=== PATIENT | female | born 1945 | race Two or more races ===

== ENCOUNTER 2021-01-06 15:10 | Inpatient (IN) | payer OTHER ==
[~2021-01-06] VITALS: Ht 162.6 cm; Wt 84.4 kg
[2021-01-06] MEDS ORDERED: ASPirin 81 mg TAB PO ONE (15:30)
[2021-01-06 16:28] LABS: Basophils # (auto) 0 10 ^3/uL (0-0.2); Basophils % (auto) 0.4 % (0.0-2.0); Eosinophils # (auto) 0.1 10 ^3/uL (0-0.8); Eosinophils % (auto) 1.8 % (0.0-7.0); Hematocrit 37.4 % (36.0-46.0); Lymphocytes # (auto) 1.4 10 ^3/uL (0.4-5.4); Lymphocytes % (auto) 19.1 % (10.0-50.0); Mean Corpuscular Hemoglobin 31.5 pg (28.0-32.0); Mean Corpuscular Hgb Conc. 34.8 g/dL (32.0-36.0); Mean Corpuscular Volume 90.6 fL (80.0-100.0); Monocytes # (auto) 0.7 10 ^3/uL (0-1.3); Monocytes % (auto) 9.9 % (0.0-12.0); Neutrophils # (auto) 5.2 10 ^3/uL (1.6-8.6); Neutrophils % (auto) 68.8 % (37.0-80.0); Nucleated Red Blood Cells % 0.1 %; Platelet Count (auto) 207 10^3/uL (140-450); Red Blood Cells 4.13 10^6/uL (4.0-5.20); Red Cell Distribution Width 14.5 % (11.8-14.3); White Blood Cell 7.5 10^3/uL (4.4-10.8)
[2021-01-06 16:44] LABS: Chloride 105 mmol/L (98-107); Sodium 139 mmol/L (136-145)
[2021-01-06 16:48] LABS: Alanine Aminotransferase 45 U/L (13-56); Albumin 3.1 g/dL (3.4-5.0); Anion Gap 7 (5-15); Aspartate Aminotransferase 27 U/L (15-37); BUN/Creatinine Ratio 16.5; Blood Urea Nitrogen 14 mg/dL (7-18); Calcium 8.1 mg/dL (8.5-10.1); Carbon Dioxide 27 mmol/L (21-32); GFR African American 84 mL/min; GFR Non-African American 69 mL/min; Glucose 88 mg/dL (74-106); Magnesium 1.4 mg/dL (1.6-2.6)
[2021-01-06 16:53] LABS: Alkaline Phosphatase 73 U/L (45-117); Bilirubin, Total 0.6 mg/dL (0.2-1.0); Total Protein 6.7 g/dL (6.4-8.2)
[2021-01-06 17:26] LABS: Potassium 2.8 mmol/L (3.5-5.1)
[2021-01-06] MEDS ORDERED: ONDANSETRON HCL 4 MG/2 ML VIAL IV ONE (17:30)
[2021-01-06] MEDS ORDERED: MORPHINE SULFATE 4 MG/ML SYR/VIAL IV ONE (17:30)
[2021-01-06] MEDS ORDERED: POTASSIUM CHL 20MEQ/100ML 100 ML IV ONE (17:30)
[2021-01-06] MEDS ORDERED: LORazepam 0.5 MG TAB PO PRN (18:15)
[2021-01-06] MEDS ORDERED: NITROGLYCERIN 0.4 MG SL TAB SL PRN (18:15)
[2021-01-06] MEDS ORDERED: IPRATROPIUM BROM 0.5 MG/2.5ML INH SOL NEB PRN (18:15)
[2021-01-06] MEDS ORDERED: MORPHINE SULF INJ 2 MG/ML SYRINGE 1ML IV PRN (18:15)
[2021-01-06] MEDS ORDERED: ACETAMINOPHEN 500 MG TAB PO PRN (18:15)
[2021-01-06] MEDS ORDERED: LABETALOL HCL 5 MG/ML 4ML SYRINGE IV PRN (18:15)
[2021-01-06] MEDS ORDERED: DOCUSATE CALCIUM 240 MG CAP PO PRN (18:15)
[2021-01-06] MEDS ORDERED: NITROGLYCERIN 0.4 MG SL TAB SL ONE (18:15)
[2021-01-06] MEDS ORDERED: ALBUTEROL SULF 2.5 MG/0.5ML(0.5%) NEB SOLN NEB PRN (18:15)
[2021-01-06 18:46] VITALS: BP 111/57
[2021-01-06 18:56] LABS: Urine Bacteria NONE SEEN /hpf (None Seen); Urine Blood Negative /uL (Negative); Urine Specific Gravity 1.012 (1.001-1.035); Urine WBC 2 /hpf (0 - 5)
[2021-01-06] MEDS ORDERED: SODIUM CHLORIDE 0.9% 1,000 ML IV ONE (19:45)
[2021-01-06 19:56] LABS: INR 1.02 (0.9-1.15); Partial Thromboplastin Time 25.9 sec (23.0-31.2)
[2021-01-06 22:49] LABS: Potassium 3.2 mmol/L (3.5-5.1)
[2021-01-06] MEDS: MORPHINE SULFATE 4 MG/ML SYR/VIAL IV PRN (23:05)
[2021-01-06 23:16] VITALS: BP 120/73
[2021-01-07 05:00] VITALS: BP 144/95
[2021-01-07 05:40] LABS: Basophils # (auto) 0 10 ^3/uL (0-0.2); Basophils % (auto) 0.3 % (0.0-2.0); Eosinophils # (auto) 0.2 10 ^3/uL (0-0.8); Eosinophils % (auto) 2.6 % (0.0-7.0); Hematocrit 34.7 % (36.0-46.0); Hemoglobin 12.1 g/dL (12.2-16.2); Lymphocytes # (auto) 1.6 10 ^3/uL (0.4-5.4); Lymphocytes % (auto) 25.4 % (10.0-50.0); Mean Corpuscular Hemoglobin 31.9 pg (28.0-32.0); Mean Corpuscular Volume 91.3 fL (80.0-100.0); Monocytes # (auto) 0.6 10 ^3/uL (0-1.3); Monocytes % (auto) 8.9 % (0.0-12.0); Neutrophils # (auto) 3.9 10 ^3/uL (1.6-8.6); Neutrophils % (auto) 62.8 % (37.0-80.0); Nucleated Red Blood Cells % 0.1 %; Platelet Count (auto) 161 10^3/uL (140-450); Red Cell Distribution Width 14.3 % (11.8-14.3); White Blood Cell 6.3 10^3/uL (4.4-10.8)
[2021-01-07 05:55] LABS: Calcium 7.5 mg/dL (8.5-10.1); Chloride 110 mmol/L (98-107); Potassium 3.3 mmol/L (3.5-5.1); Sodium 142 mmol/L (136-145)
[2021-01-07 06:02] LABS: INR 1.04 (0.9-1.15)
[2021-01-07 06:04] LABS: Alanine Aminotransferase 38 U/L (13-56); Albumin 2.9 g/dL (3.4-5.0); Alkaline Phosphatase 64 U/L (45-117); Anion Gap 9 (5-15); Aspartate Aminotransferase 22 U/L (15-37); BUN/Creatinine Ratio 28.6; Bilirubin, Total 0.4 mg/dL (0.2-1.0); Blood Urea Nitrogen 22 mg/dL (7-18); Carbon Dioxide 23 mmol/L (21-32); GFR African American 94 mL/min; GFR Non-African American 77 mL/min; Glucose 89 mg/dL (74-106); Total Protein 5.9 g/dL (6.4-8.2)
[2021-01-07] MEDS: MORPHINE SULFATE 4 MG/ML SYR/VIAL IV PRN ×3 (06:42→17:46)
[2021-01-07] MEDS: ONDANSETRON HCL 4 MG/2 ML VIAL IV PRN ×2 (06:57→17:55)
[2021-01-07] MEDS ORDERED: MORP30TA PO (07:10)
[2021-01-07] MEDS ORDERED: HYDR-4798 PO (07:10)
[2021-01-07] MEDS ORDERED: APIX5TAB PO (07:10)
[2021-01-07 09:00] VITALS: BP 155/91
[2021-01-07] MEDS ORDERED: CALCIUM CARB 500 MG CHEW TAB PO SCH (10:00)
[2021-01-07] MEDS ORDERED: PANTOPRAZOLE 40 MG TAB PO SCH (10:00)
[2021-01-07] MEDS ORDERED: ENOXAPARIN SOD 40 MG/0.4 ML SYRINGE SC SCH (10:00)
[2021-01-07 13:00] VITALS: BP 138/71
[2021-01-07] MEDS ORDERED: LIDOCAINE 2%HCL (LOCAL ANESTH.) INJ 20ML MDV ONE (15:24)
[2021-01-07] MEDS ORDERED: IODIXANOL 320MG/ML 100ML BTL IV ONE (15:25)
[2021-01-07] MEDS ORDERED: HEPARIN SODIUM (PORCINE) 5000 UNITS/ML 1ML VIAL ONE (15:25)
[2021-01-07] MEDS ORDERED: ANGIOMAX 250 MG VIAL IV ONE (15:25)
[2021-01-07] MEDS ORDERED: VERAPAMIL 2.5MG/ML INJ 2ML VIAL IV ONE (15:26)
[2021-01-07] MEDS ORDERED: SODIUM CHL 0.9% 0 ML ONE (15:26)
[2021-01-07] MEDS ORDERED: fentaNYL CITRATE 100 MCG/2 ML VL ONE (15:26)
[2021-01-07] MEDS ORDERED: MIDAZOLAM HCL 1MG/1ML-2 ML VIAL ONE (15:26)
[2021-01-07] MEDS ORDERED: ONDANSETRON HCL 4 MG/2 ML VIAL ONE (15:45)
[2021-01-07] MEDS ORDERED: PANT40T PO (16:05)
[2021-01-07 17:00] VITALS: BP 126/55
[2021-01-07 18:19] VITALS: BP 138/71
== END 2021-01-07 16:14 | disposition home or self-care (01) | DRG 287 ==
LOC: ER 15:10 → TELE 18:11 → TELE-WESTW 21:38
PROVIDERS: ADMIT Family Medicine; ATTEND Internal Medicine
PROC: B211YZZ Fluoroscopy of Multiple Coronary Arteries using Other Contrast (ICD-10-PCS; principal; 2021-01-07)
PROC: 4A023N7 Measurement of Cardiac Sampling and Pressure, Left Heart, Percutaneous Approach (ICD-10-PCS; 2021-01-07)
DX: I24.9 Acute ischemic heart disease, unspecified (principal); I25.10 Atherosclerotic heart disease of native coronary artery without angina pectoris; R55 Syncope and collapse; E87.6 Hypokalemia; I48.91 Unspecified atrial fibrillation; E83.51 Hypocalcemia; E83.42 Hypomagnesemia; J45.909 Unspecified asthma, uncomplicated; Z96.653 Presence of artificial knee joint, bilateral; M54.5 Low back pain; M25.511 Pain in right shoulder; Z20.822 Contact with and (suspected) exposure to COVID-19; G89.29 Other chronic pain; E66.9 Obesity, unspecified; I10 Essential (primary) hypertension; Z88.5 Allergy status to narcotic agent; Z90.49 Acquired absence of other specified parts of digestive tract; Z90.710 Acquired absence of both cervix and uterus; Z68.31 Body mass index [BMI] 31.0-31.9, adult; Z79.01 Long term (current) use of anticoagulants
CPT/HCPCS: 36415; 70450; 71045; 80051; 80053; 81001; 83735; 83880; 84443; 84484; 85025; 85379; 85610; 85730; 86850; 86900; 86901; 87081; 87426; 93005; 96361; 96374; 96375; 99152; 99291; G0378; J2250; J2405; J3480; J3490; Q9967

== ENCOUNTER 2022-11-29 23:19 | Emergency (ER) | payer OTHER ==
[~2022-11-29] VITALS: Ht 162.6 cm; Wt 90.4 kg
[~2022-11-29 23:19] MED LIST: APIX5TAB PO; HYDR-4798 PO; MORP30TA PO; PANT40T PO
[2022-11-29 23:35] VITALS: BP 125/71
[2022-11-29 23:39] LABS: Basophils # (auto) 0 10 ^3/uL (0-0.2); Basophils % (auto) 0.4 % (0.0-2.0); Eosinophils # (auto) 0.1 10 ^3/uL (0-0.8); Eosinophils % (auto) 1.4 % (0.0-7.0); Hematocrit 35.9 % (36.0-46.0); Hemoglobin 12.3 g/dL (12.2-16.2); Lymphocytes # (auto) 1.1 10 ^3/uL (0.4-5.4); Lymphocytes % (auto) 14.5 % (10.0-50.0); Mean Corpuscular Hemoglobin 30.5 pg (28.0-32.0); Mean Corpuscular Hgb Conc. 34.3 g/dL (32.0-36.0); Mean Corpuscular Volume 89.2 fL (80.0-100.0); Monocytes # (auto) 0.6 10 ^3/uL (0-1.3); Neutrophils # (auto) 5.8 10 ^3/uL (1.6-8.6); Neutrophils % (auto) 75.7 % (37.0-80.0); Red Blood Cells 4.02 10^6/uL (4.0-5.20); Red Cell Distribution Width 12.9 % (11.8-14.3); White Blood Cell 7.6 10^3/uL (4.4-10.8)
[2022-11-29 23:57] LABS: Albumin 3.1 g/dL (3.4-5.0); BUN/Creatinine Ratio 17.9 (10.0-20.0); Calcium 8.1 mg/dL (8.5-10.1); Magnesium 1.6 mg/dL (1.6-2.6); Potassium 3.8 mmol/L (3.5-5.1)
[2022-11-29 23:58] LABS: Bilirubin, Total 0.4 mg/dL (0.2-1.0); Total Protein 6.8 g/dL (6.4-8.2)
== END 2022-11-30 03:45 | disposition left against medical advice (07) ==
LOC: ER 23:19
DX: R07.89 Other chest pain (principal); J45.909 Unspecified asthma, uncomplicated; R06.02 Shortness of breath; Z90.49 Acquired absence of other specified parts of digestive tract; Z90.710 Acquired absence of both cervix and uterus; Z79.899 Other long term (current) drug therapy
CPT/HCPCS: 36415; 71045; 80053; 83735; 83880; 84484; 85025; 93005

== ENCOUNTER 2024-07-09 08:16 | Day surgery (SDC) | payer OTHER ==
[~2024-07-09] VITALS: Ht 162.6 cm; Wt 86.2 kg
[~2024-07-09 08:16] MED LIST changes: +ASPI-543 PO; +DRON400T PO; +ESCI1TAB37 PO; +METO-158 PO; +NITR0.4S29 SL
[2024-07-09] MEDS ORDERED: ONDANSETRON HCL 4 MG/2 ML VIAL IV ONE (09:45)
[2024-07-09] MEDS ORDERED: fentaNYL CITRATE 100 MCG/2 ML VL IV ONE (09:45)
[2024-07-09] MEDS ORDERED: LIDOCAINE VISCOUS 2% 15ML UD PO ONE (09:45)
[2024-07-09] MEDS ORDERED: MIDAZOLAM HCL 2MG/2ML 2ml VIAL (1mg/ml) IV ONE (09:45)
--- NOTE | 2024-07-09 12:34 | DVHOP ---
DATE OF SURGERY: 07/09/2024 PROCEDURES PERFORMED: Transesophageal echocardiogram and DC cardioversion for atrial fibrillation. DESCRIPTION OF PROCEDURE: Prior full informed consent obtained. The patient was prepped and draped in the usual fashion. Transesophageal probe was passed after conscious sedation given. Standard views obtained. No complications. We then proceeded to perform DC cardioversion as mentioned below. Her initial blood pressure was 130/70, heart rate was approximately 76. Transesophageal probe was passed and findings were as follows. CONCLUSIONS: * Technically good study. Atrial fibrillation. Left atrial enlargement. Mild concentric LVH. Valves are normal. * EF of 55% with normal RV function. Mild TR and mild mitral insufficiency noted. No ASD or VSD. Transgastric views were not obtained. No vegetations discernible. The atrial appendage was clean without thrombus. We proceeded with DC cardioversion. The patient had received conscious sedation and was sleeping. Our first DC cardioversion attempt was at 150 joules with a synchronized mode. The patient remained in atrial fibrillation. A second shock at 200 joules with synchronized DC cardioversion converted the patient to a sinus rhythm successfully. The patient tolerated the procedure well. There were no complications. Neurologically, the patient remained intact and in sinus rhythm. Kt Doran MD GAP/SAG TID: [id number] RECEIPT: [id number]
[2024-07-09 13:27] VITALS: BP 156/101; PULSE 65; RESP 16; TEMP 98.1; O2SAT 100
[2024-07-09 13:57] VITALS: BP 151/62; PULSE 53; RESP 17; O2SAT 100
== END 2024-07-09 14:29 | disposition home or self-care (01) ==
LOC: CATH 08:16
PROVIDERS: ATTEND Internal Medicine
DX: I48.91 Unspecified atrial fibrillation (principal); I08.1 Rheumatic disorders of both mitral and tricuspid valves; Z87.891 Personal history of nicotine dependence; Z90.710 Acquired absence of both cervix and uterus; Z88.6 Allergy status to analgesic agent; Z79.82 Long term (current) use of aspirin
CPT/HCPCS: 92960; 93312; 93325; J2250; J2405; J3010; J7040; 99152

== ENCOUNTER 2024-10-01 09:01 | Inpatient (IN) | payer OTHER ==
[~2024-10-01] VITALS: Ht 157.5 cm; Wt 93.0 kg
[2024-10-01] VITALS (16 sets, daily range): BP systolic 129–189; BP diastolic 45–118; PULSE 47–99; RESP 12–20; TEMP 97.8; O2SAT 92–97
[2024-10-01] MEDS: IODIXANOL 320MG/ML 100ML BTL IV ONE ×2 (07:55→12:16)
[~2024-10-01 09:01] MED LIST changes: -APIX5TAB PO; -DRON400T PO; +FAMO20TA10 PO; -PANT40T PO; +PANT40TA57 PO
[2024-10-01] MEDS: HEPARIN SODIUM (PORCINE) 5000 UNITS/ML 1ML VIAL ONE (12:15)
[2024-10-01] MEDS: VERAPAMIL 2.5MG/ML INJ 2ML VIAL IV ONE (12:15)
[2024-10-01] MEDS: ANGIOMAX 250 MG VIAL IV ONE (12:15)
[2024-10-01] MEDS: MIDAZOLAM HCL 2MG/2ML 2ml VIAL (1mg/ml) ONE (12:15)
[2024-10-01] MEDS: fentaNYL CITRATE 100 MCG/2 ML VL ONE (12:15)
[2024-10-01] MEDS: LIDOCAINE 2%HCL (LOCAL ANESTH.) INJ 20ML MDV ONE (12:16)
[2024-10-01] MEDS: SODIUM CHL 0.9% 0 ML ONE (12:16)
[2024-10-01] MEDS: hydrALAZINE HCL 20 MG/ML VL ONE ×2 (13:11→17:45)
--- NOTE | 2024-10-01 13:21 | DVHOP2 ---
Operative Report - 2 Report Details Date: 10/01/24 Preop Diagnosis: CAD. Pulmonary hypertension Postop Diagnosis: No CAD. Normal pressures. Surgeon: Karla Doran MD Anesthesiologist: Conscious sedation. Anesthesia: Mac, Local (Versed and fentanyl given per protocol. Attending nurse provided medication. I observed and monitored sedation and patient for th e course of the procedure.) Consent: The patient was informed of the risks and benefits of the procedure. These include but are not limited to complications of anesthesia, postoperative infection, incomplete relief of symptoms, recurrence of symptoms, damage to blood vessels, nerves and tendons, deep venous thrombosis, pulmonary embolism and possible need for repeat surgery in the future. Complications: No complications. Estimated Blood Loss: 5 cc. Findings: Normal pulmonary pressures. Normal hemodynamics. No significant CAD Indications for Surgery: Chest pain. Atrial fibrillation. Dysrhythmias Name of Procedure Performed Right and left heart catheterization. Bilateral cine coronary angiography. Left ventriculography. Procedure Details Procedure Details: Prior local anesthesia with 2% lidocaine to the right groin and full informed consent obtained the patient was prepped and draped in usual fashion followed by placement of a six [place] sheath into the right femoral artery through which six [place] Anum catheters were used to cannulate both right and left coronary ostium insert [place] pigtail catheter was used for ventriculography. The six [place] venous sheath a [place] catheter was advanced into the right atrium right ventricle pulmonary artery capillary wedge pressure positions where pressures were obtained recorded. Cardiac outputs were recorded by the thermodilution technique in triplicate. Patient tolerated the procedure well there were no complications. Hemodynamics: Aortic blood pressure was 149 over 58 with a mean of 86. End- diastolic pressure was 10 without a gradient across the aortic valve on pullback. Right atrial pressure was mean of nine. Right ventricular pressure was 35 over 14 with a mean of 17. Capillary wedge pressure was approximately 12. Pulmonary pressure was 32/21. Cardiac output by the thermodilution technique was 3.2 liters/minute. O2 saturations were not obtained. Coronary anatomy: RCA is a small vessel that is normal in its proximal mid and distal segments. The PDA and posterolateral branches are small and normal. Left main is large and normal. The LAD is large and normal with two diagonals free of significant disease. Circumflex is large with two marginals free of significant disease. The intermediate vessel is a medium caliber vessel it is normal in its proximal mid and distal segments. Ventriculography in the PARRY projection shows an EF of 60% with normal valve function. Impression: Normal left ventricular end-diastolic pressure was normal pulmonary pressures. Normal left ventricular function normal coronary arteries. No significant pulmonary hypertension. Recommendations: Continue risk factor modification Condition Good Disposition Home Date of Service: Oct 01, 2024 Billing Provider: KARLA DORAN Sr., MD Cardiology Common Codes: 20188-LJEALUC INP/OBS CARE (High) Cardiology Procedure Codes: 00411-TJVMIM VESSEL W/I VASC FAM, 92289-HDFR ADD CORONARY BRANCH, 84146-Z/R & L HEART CATH FOR LVG, 46759-PGP & PLCMT OF FLOW DIR CATH (Right and left heart catheterization) KARLA DORAN Sr., MD Oct 01, 2024 13:21
[2024-10-01] MEDS ORDERED: ONDANSETRON HCL 4 MG/2 ML VIAL IM ONE (15:30)
[2024-10-01] MEDS: ONDANSETRON HCL 4 MG/2 ML VIAL IV ONE (15:30)
[2024-10-01] MEDS: ONDANSETRON HCL 4 MG/2 ML VIAL ONE (15:46)
[2024-10-01] MEDS: METOCLOPRAMIDE HCL 5MG/ml INJ 2ml VIAL IV ONE (16:45)
[2024-10-01] MEDS: METOCLOPRAMIDE HCL 5MG/ml INJ 2ml VIAL ONE (16:47)
[2024-10-01] MEDS ORDERED: NITROGLYCERIN 0.4 MG SL TAB SL PRN (17:45)
[2024-10-01] MEDS ORDERED: MORPHINE SULFATE INJ 2 MG/ml SYRG IV PRN (17:45)
[2024-10-01] MEDS ORDERED: FAMOTIDINE 20 MG TAB PO SCH (18:00)
[2024-10-01] MEDS: SOD CHL 0.45% 1,000 ML IV SCH (19:15)
[2024-10-01] MEDS: METOPROLOL TARTRATE 50 MG TAB PO SCH (22:28)
[2024-10-01] MEDS: ONDANSETRON HCL 4 MG/2 ML VIAL IV PRN (23:07)
[2024-10-01] MEDS: HYDROcodone-ACET 10/325MG TAB PO PRN (23:07)
[2024-10-02] VITALS (9 sets, daily range): BP systolic 102–176; BP diastolic 48–84; PULSE 65–92; RESP 17–18; TEMP 98–98.5; O2SAT 92–97
[2024-10-02] MEDS: hydrALAZINE HCL 20 MG/ML VL IV PRN (04:30)
[2024-10-02] MEDS: ASPirin-EC 81 mg tab PO SCH (09:15)
[2024-10-02] MEDS: PANTOPRAZOLE 40 MG TAB PO SCH (09:15)
[2024-10-02] MEDS: ESCITALOPRAM OXALATE 20 MG PO SCH (09:16)
--- NOTE | 2024-10-02 16:32 | DVHDS2 ---
Physician Discharge Progress N Final Diagnosis: No CAD. Normal pressures. Secondary Diagnosis: Nausea and intractable vomiting Operations or Procedures: Operations or Procedures Right and left heart catheterization. Bilateral cine coronary angiography. Left ventriculography. Commentary: Commentary Patient was kept overnight given intractable vomiting. Zofran was given. IV hydration was given post cardiac catheterization procedure. She feels it was secondary to the fentanyl instituted for conscious sedation. She has recovered extraordinarily well. Lungs are clear. Heart exam is regular. Extremities are well perfused. Neurologically intact. I did discuss this with her who is at bedside. We will follow up with her in two weeks. Discharge today. Condition on Discharge: Good Disposition: Home Discharge Instructions: Diet: Cardiac 2g Na,low cholest Activity: Light activity Follow Up/Referral: Follow up with Dr. Doran in 1-2 weeks. Medications: continue home meds. Follow Up Care: Specialist: Dr. Doran Discharge Statement: "Patient was advised to return to the ER or call 911 if any headaches, dizziness, shortness of breath, chest pain, abdominal pain, bleeding, fevers, or worsening of medical condition. Patient was counseled about treatment plan, medications, possible side effects, patientverbalized understanding. All questions were answered to the best of my ability. This discharge took greater then 30 minutes in planning, reviewing documentation, counseling the patient, and discussing with other team members." KARLA DORAN Sr., MD Oct 02, 2024 16:32
== END 2024-10-02 19:38 | disposition home or self-care (01) | DRG 392 ==
LOC: CATH 09:01 → OVERFLOW 17:36 → TELE-WESTW 19:50
PROVIDERS: ADMIT Internal Medicine; ATTEND Internal Medicine
PROC: 4A023N8 Measurement of Cardiac Sampling and Pressure, Bilateral, Percutaneous Approach (ICD-10-PCS; principal; 2024-10-01)
PROC: B211YZZ Fluoroscopy of Multiple Coronary Arteries using Other Contrast (ICD-10-PCS; 2024-10-01)
PROC: B216YZZ Fluoroscopy of Right and Left Heart using Other Contrast (ICD-10-PCS; 2024-10-01)
DX: R11.2 Nausea with vomiting, unspecified (principal)
CPT/HCPCS: 93461; 99152; G0378; J2250; J2405; Q9967